=== PATIENT | male | born 1960 | race Caucasian/White ===

== ENCOUNTER → 2022-07-25 12:12 | Outpatient (CLI) | payer BC, SELFPAY ==
--- NOTE | 2022-07-25 12:16 | US_ITS ---
FINAL REPORT TECHNIQUE: Sonographic images of the right upper quadrant were obtained. CLINICAL HISTORY: RUQ ABDOMINAL PAIN FINDINGS: The liver is fatty infiltrated. There is no focal hepatic lesion or intrahepatic biliary dilatation. The gallbladder is distended with gallstones present. Gallbladder wall is mildly thickened. There appears to be a small amount of pericholecystic fluid. Common duct measures 4 mm which is normal. The pancreas is obscured. The right kidney measures 13.7 cm in jjcs-ch-shyl length. There is no hydronephrosis, mass, or stone. There is no right upper quadrant ascites. IMPRESSION: Distended gallbladder with gallstones, mild gallbladder wall thickening and pericholecystic fluid. Cholecystitis not excluded. Fatty infiltration of the liver. Reviewed, Interpreted and Dictated by Ginger Soni MD Transcribed by Jamila De Leon Authenticated and [facility]
== END ==
PROVIDERS: PCP Physician Assistant; Visit Provider Physician Assistant
DX: R10.11 Right upper quadrant pain (principal)
CPT/HCPCS: 76705

== ENCOUNTER 2022-07-26 10:40 | Inpatient (IN) | payer BC, SELFPAY ==
--- NOTE | 2022-07-26 10:54 | PC.NURSE ---
Pt arrived to the floor at this time
[2022-07-26 11:11] VITALS: BP 167/90; PULSE 63; RESP 16; TEMP 36.4; O2SAT 95; BMI 33.7
--- NOTE | 2022-07-26 12:26 | HMH.PHAINT1 ---
Pharmacy Intervention Comments: MEDICATION RECONCILIATION COMPLETED ON PATIENT USING EXTERNAL FILL HISTORY FROM PHARMACY. -DAYNA PAYNE, SELMAD
[2022-07-26 12:37] LABS: Coronavirus 19, PCR Not Detected (NotDetected); Influenza A, PCR Not Detected (NotDetected); Influenza B, PCR Not Detected (NotDetected)
--- NOTE | 2022-07-26 13:02 | EXP.HP ---
History of Present Illness *Admission Date: 07/26/22 *Reason for visit:: Gallbladder issues *History of present illness: Mr. 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 He described the pain as starting in his back several days prior to the office visit and then moved into his abdominal area the following day. He did have some pain in his right upper quadrant that lasted about 3 hours. He did not get any relief for several hours. With presentation to the office the pain was dull rating it 1-2 on the pain scale. He felt his muscles were sore. The pain was mostly in the upper abdomen at this time. He also had some nausea but denied vomiting and diarrhea and fever. Laboratory data completed at this time revealed a white count of 12,000. He was started on Ceftin for 10 days and metronidazole 3 times daily for 10 days. He was also given hyoscyamine for as needed use. Amylase was normal and liver function studies were not elevated. He was scheduled for right upper quadrant ultrasound at this time. He did have the ultrasound of the abdomen on 07/25/2022 which revealed a distended gallbladder with gallstones, mild gallbladder wall thickening and pericholecystic fluid. Also noted was fatty infiltration of the liver. He continued to have some intermittent abdominal discomfort. He was eating and drinking without vomiting. He was admitted to [facility] with the surgical consult. At the time of this exam patient is comfortable and denies nausea vomiting and abdominal pain. He is n.p.o. Surgery has been consulted. [facility] Disclaimer: The information contained in this section may have been updated after the patient was seen, as this information can be updated by other users. Medical History (Updated 07/26/22 @ 13:25 by Roberta Dugan APRN) DVT (deep venous thrombosis) GERD (gastroesophageal reflux disease) Hereditary spherocytosis Pulmonary embolism Pulmonary hypertension Right acoustic neuroma Sleep apnea Surgical History (Updated 07/26/22 @ 13:17 by Roberta Dugan APRN) History of splenectomy History of tonsillectomy S/P excision of acoustic neuroma Social History Smoking Status: Never smoker alcohol intake: never current occupational status: employed Travel in the last 8 weeks: None Review of Systems Constitutional Constitutional: Denies fever(s), Denies frequent falls and Reports headache(s) (Longstanding history of headaches) Eyes Eyes: Denies change in vision ENT Ears, Nose, Mouth, and Throat: Denies dizziness, Denies otalgia, Reports headache(s) (Longstanding history of headaches), Reports hearing loss and Denies sore throat *Cardiovascular Cardiovascular: Denies chest pain, Denies dyspnea and Reports leg edema *Respiratory Respiratory: Denies chest congestion, Denies cough and Denies dyspnea *Gastrointestinal Gastrointestinal: Reports abdominal pain, Denies belching, Denies diarrhea, Reports dyspepsia, Reports nausea and Denies vomiting *Genitourinary Genitourinary: Denies difficulty urinating *Musculoskeletal Musculoskeletal: Denies abnormal gait *Neurologic Neurologic: Denies abnormal gait, Denies dizziness, Denies localized weakness, Denies frequent falls, Reports headache(s) (Longstanding history of headaches) and Denies seizure-like activity Meds Home Medications and Allergies Home Medications Medication Instructions Recorded Confirmed Type ambrisentan 10 mg tablet (Letairis) 10 mg PO DAILY Pulmonary 07/26/22 07/26/22 History Hypertension benazepril 10 mg tablet 10 mg PO DAILY hypertension 07/26/22 07/26/22 History cefuroxime
[2022-07-26 13:12] LABS: INR 1.76 (0.9-1.1); Prothrombin Time 18.4 seconds (10.1-12.5)
--- NOTE | 2022-07-26 13:13 | P.PN_ITS ---
Subjective *Date: 07/26/22 *Time: 13:23 Interval history: 61 year old male with a 10 day history of right sided back pain that radiates to the right upper quadrants. He was seen in the office at [facility] on 07/22/22 and started on antibiotics, RUQ U/S was done yesterday and shows gallbladder changes consistent with acute cholecystitis. He was directly admitted today for surgical evaluation. Pt is on Coumadin Medical Exam Vital signs and Labs for Last 24 Hours: Vital Signs Temp Pulse Resp BP Pulse Ox 07/26/22 11:11 97.6 F 63 16 167/90 H 95 Intake and Output 07/25/22 07/26/22 07/26/22 23:59 07:59 15:59 Output Total 0 / 0 Balance 0 / 0 Output: Output, Urine Amount 0 / 0 Other: Number of Unmeasured Voids 1 Weight 249 lb 2 oz Patient Weight 07/26/22 23:59 Weight 249 lb 2 oz I & O for Labs for Last 24 Hours: Intake & Output 07/23/22 07/24/22 07/25/22 07/26/22 23:59 23:59 23:59 23:59 Output Total 0 / 0 Balance 0 / 0 Weight 249 lb 2 oz Constitutional: Present no acute distress Respiratory: Present normal respiratory effort Cardiac: Present Reg Rate and Rhythm GI: Present tenderness (RUQ), normal bowel sounds and tenderness at McBurney's Point; Absent guarding or rebound Extremities: Present normal inspection and full ROM Skin: Present intact; Absent erythema Neuro: Present Grossly Intact and moves all extremities Assessment and Plan *Assessment and plan (1) Cholecystitis: Status: Acute Category: Medical Code(s): K81.9 - Cholecystitis, unspecified Plan Patient admitted due to acute cholecystitis, labs pending, will consult surgery.
--- NOTE | 2022-07-26 13:24 | EXP.SURG.CON ---
History of Present Illness *Admission Date: 07/26/22 *Reason for visit:: Acute cholecystitis *History of present illness: Mr. 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 He described the pain as starting in his back about 6 days prior to the office visit and then moved into his abdominal area the following day. Pain is mostly in the epigastrium and right upper quadrant. He was managed as an outpatient when he was seen in the office in [facility] several days ago and started on oral antibiotics. He was scheduled for right upper quadrant ultrasound which he had done today which revealed findings of distended gallbladder with gallstones with mild gallbladder wall thickening and pericholecystic fluid. Cholecystitis not excluded. Fatty infiltration of the liver. He was admitted for inpatient management and surgical consultation this afternoon. [facility] Disclaimer: The information contained in this section may have been updated after the patient was seen, as this information can be updated by other users. Medical History (Updated 07/26/22 @ 13:25 by Roberta Dugan APRN) DVT (deep venous thrombosis) GERD (gastroesophageal reflux disease) Hereditary spherocytosis Pulmonary embolism Pulmonary hypertension Right acoustic neuroma Sleep apnea Surgical History (Updated 07/26/22 @ 13:17 by Roberta Dugan APRN) History of splenectomy History of tonsillectomy S/P excision of acoustic neuroma Social History Smoking Status: Never smoker alcohol intake: never current occupational status: employed Travel in the last 8 weeks: None Meds Home Medications and Allergies Home Medications Medication Instructions Recorded Confirmed Type ambrisentan 10 mg tablet (Letairis) 10 mg PO DAILY Pulmonary 07/26/22 07/26/22 History Hypertension benazepril 10 mg tablet 10 mg PO DAILY hypertension 07/26/22 07/26/22 History cefuroxime axetil 500 mg tablet 500 mg PO BID Infection 07/26/22 07/26/22 History cholecalciferol (vitamin D3) 25 1,000 unit PO DAILY Supplement 07/26/22 07/26/22 History mcg (1,000 unit) capsule (Vitamin D3) fenofibrate 160 mg tablet 160 mg PO DAILY TRIGLYCERIDES 07/26/22 07/26/22 History hydrochlorothiazide 25 mg tablet 25 mg PO DAILY Fluid 07/26/22 07/26/22 History hyoscyamine sulfate 0.125 mg 0.125 mg sublingual Q4HP PRN 07/26/22 07/26/22 History sublingual tablet STOMACH CRAMPS metoprolol succinate 100 mg 100 mg PO DAILY hypertension 07/26/22 07/26/22 History tablet,extended release 24 hr metronidazole 500 mg tablet 500 mg PO TID Infection 07/26/22 07/26/22 History efulxjbertqo-vvqpeuvs-zulteu 1 tab PO DAILY Supplement 07/26/22 07/26/22 History tablet (Multivitamin 50 Plus tablet) omeprazole 20 mg capsule,delayed 20 mg PO DAILY GERD 07/26/22 07/26/22 History release tamsulosin 0.4 mg capsule 0.4 mg PO DAILY PROSTATE 07/26/22 07/26/22 History warfarin 5 mg tablet 2.5 mg PO MOWEFR HX OF DVT/PE 07/26/22 07/26/22 History warfarin 5 mg tablet 5 mg PO SUTUTHSA HX OF DVT/PE 07/26/22 07/26/22 History New Prescriptions to Start Prescriptions: Allergies Allergy/AdvReac Type Severity Reaction Status Date / Time Penicillins Allergy Verified 07/26/22 13:00 Exam (Inpt) Vital signs and Labs for Last 24 Hours: Temp Pulse Resp BP Pulse Ox 97.6 F 63 16 167/90 H 95 07/26/22 11:11 07/26/22 11:11 07/26/22 11:11 07/26/22 11:11 07/26/22 11:11 Laboratory Results - last 24 hr 07/26/22 12:48: PT 18.4 H, INR 1.76 H I & O for Labs for Last 24 Hours: Intake & Output 07/24/22 07/25/22 07/26/22 0
--- NOTE | 2022-07-26 13:56 | ECG_ITS ---
APPROVED REPORT Exam: Resting ECG HR:57 bpm ECG Measurements Heart Rate 57 AXES MN 222 P 26 QRSd 82 QRS 39 QT 443 T 47 QTc 436 Conclusion SINUS BRADYCARDIA WITH FIRST DEGREE AV BLOCK ABNORMAL ECG UNCONFIRMED REPORT Electronically signed by : Vasu Vance MD 07/26/2022 21:23:14
[2022-07-26 15:02] LABS: MANUAL DIFFERENTIAL MANUAL DIFFERENTIAL (MANUAL DIFF)
[2022-07-26 15:05] LABS: Basophils # 0.1 K/mm3 (0-0.2); Basophils % 1.1 % (0.1-2.0); Chloride 102 mmol/L (98-107); Eosinophils # 0.5 K/mm3 (0.0-0.4); Eosinophils % 4.6 % (0.1-12.0); Hematocrit 44.9 % (42.0-52.0); Hemoglobin 15.7 g/dL (14.1-18.0); Lymphocytes # 3.9 K/mm3 (0.7-4.5); Lymphocytes % 33.5 % (10-50); Mean Corpuscular HGB Conc 35.1 g/dL (31.8-35.4); Mean Corpuscular Hemoglobin 32.9 pg (27.0-31.2); Mean Corpuscular Volume 93.6 fl (80-94); Mean Platelet Volume 9.3 fl (7.4-10.4); Monocytes # 0.8 K/mm3 (0.1-1.0); Monocytes % 6.8 % (1.7-9.3); Neutrophils # 6.3 K/mm3 (1.8-7.8); Platelet Count 634 K/mm3 (142-424); Red Blood Count 4.79 M/mm3 (4.60-6.20); Red Cell Distribution Width 13.8 % (11.5-17.5); Sodium 141 mmol/L (136-145); White Blood Count 11.7 K/mm3 (4.8-10.8)
[2022-07-26 15:06] LABS: Potassium 4.4 mmoL/L (3.5-5.1)
[2022-07-26 15:08] LABS: Alanine Aminotransferase 25 U/L (12-78); Anion Gap 11.4 mEq/L (5-15); Aspartate Amino Transferase 30 U/L (17-59); Blood Urea Nitrogen 18 mg/dl (9-20); Carbon Dioxide 32 mmol/L (22.0-30.0); Creatinine Clearance Estimated 124 mL/min (50-200); Estimated Glomerular Filt Rate 86 ml/min (>60); GFR (African American) 104 ML/MIN (>60)
[2022-07-26 15:09] LABS: Albumin Level 4.2 g/dl (3.5-5.0); Albumin/Globulin Ratio 1.2 (1.1-1.8); Alkaline Phosphatase 76 U/L (38-126); Bilirubin,Total 0.9 mg/dl (0.2-1.3); Calcium 9.1 mg/dl (8.4-10.2); Globulin 3.6 g/dL (1.3-3.2); Glucose 103 mg/dl (74-100); Total Protein,Serum 7.8 g/dl (6.3-8.2)
[2022-07-26 15:27] VITALS: BP 148/93; PULSE 60; RESP 16; TEMP 36.3; O2SAT 94
[2022-07-26 17:46] LABS: Eosinophils % 7 % (0-3); Lymphocytes % 40 % (10-50); Monocytes % 7 % (2-9); Neutrophils % 46 % (42-76); Total Cells Counted 100
[2022-07-26 17:47] LABS: Platelet Estimate Moderate Increase; RBC Morphology Normal
[2022-07-26 20:00] VITALS: BP 142/77; PULSE 63; RESP 22; TEMP 36.3; O2SAT 95
--- NOTE | 2022-07-26 20:49 | PC.NURSE ---
dr meyer called for pt complaints of headache, telephone order recieved fro tylenol 650mg po q4hrs as needed repeated and verified, consent obtained for laparoscopic cholecystectomy as ordered, pt verabalized understanding of all.
[2022-07-27] VITALS (36 sets, daily range): BP systolic 101–173; BP diastolic 50–102; PULSE 62–93; RESP 10–28; TEMP 36.2–43; O2SAT 90–98; BMI 34.0
--- NOTE | 2022-07-27 04:34 | PC.NURSE ---
no acute distress, vss, pt is alert and oriented x4, abd distended and tender, active bowel sounds noted, pt with bm x2 this shift, pt with home cpap at bedside and in use while sleeping, pt voiding without difficulty, ble edema non pitting 2+ noted, skin pwd.
[2022-07-27 06:59] LABS: Prothrombin Time 16.8 seconds (10.1-12.5)
--- NOTE | 2022-07-27 07:15 | P.PN_ITS ---
Subjective Narrative: Patient states that his night was rough due to pain from his gallbladder. Exam Data for Last 24 hours Vital signs and Labs for Last 24 Hours: Temp Pulse Resp BP Pulse Ox 97.4 F L 66 22 134/65 96 07/27/22 04:00 07/27/22 04:00 07/27/22 04:00 07/27/22 04:00 07/27/22 04:00 Laboratory Results - last 24 hr 07/26/22 12:10: SARS-CoV-2 (PCR) Not detected, Influenza A Untype (PCR) Not detected, Influenza Type B (PCR) Not detected 07/26/22 12:48: PT 18.4 H, INR 1.76 H 07/26/22 12:48: WBC 11.7 H, RBC 4.79, Hgb 15.7, Hct 44.9, MCV 93.6, MCH 32.9 H, MCHC 35.1, RDW 13.8, Plt Count 634 H, MPV 9.3, Neut % (Auto) 54.0, Lymph % (Auto) 33.5, [place] % (Auto) 6.8, Eos % (Auto) 4.6, Baso % (Auto) 1.1, Neut # (Auto) 6.3, Lymph # (Auto) 3.9, [place] # (Auto) 0.8, Eos # (Auto) 0.5 H, Baso # (Auto) 0.1, Total Counted 100, Neutrophils % (Manual) 46, Lymphocytes % (Manual) 40, Monocytes % (Manual) 7, Eosinophils % (Manual) 7 H, Platelet Estimate Modera te increase, RBC Morphology Normal 07/26/22 12:48: Sodium 141, Potassium 4.4, Chloride 102, Carbon Dioxide 32 H, Anion Gap 11.4, BUN 18, Creatinine 0.90, Estimated Creat Clear 124, Estimated GFR 86, Est GFR ( Amer) 104, Glucose 103 H, Calcium 9.1, Total Bilirubin 0.9, AST 30, ALT 25, Alkaline Phosphatase 76, Total Protein 7.8, Albumin 4.2, Globulin 3.6 H, Albumin/Globulin Ratio 1.2 07/27/22 06:07: PT 16.8 H, INR 1.60 H I & O for Last 24 hours: Intake & Output 07/24/22 07/25/22 07/26/22 01/25/23 11:59 11:59 11:59 11:59 Intake Total 760 / 760 Output Total 0 / 0 0 / 0 Balance 0 / 0 760 / 760 Weight 249 lb 2 oz 251 lb *Routine Abdominal Exam Abdominal: Present soft and tenderness Progress Note: A&P Assessment and plan (1) Cholecystitis: Status: Acute Assessment and plan: His INR is 1.6. Plan for laparoscopic possibly open cholecystectomy today. We will see about transfusing FFP during the procedure.
--- NOTE | 2022-07-27 07:51 | EXP.PN ---
Subjective *Date: 07/27/22 *Time: 08:34 Interval history: Patient is ready for surgery. He has been seen by Dr. Fernando and the plan is for surgery at 830 this morning. Patient states he slept about 4 hours last night which is his usual. He did have some right upper quadrant discomfort during the night. He had clear liquids and retained yesterday and he is hungry. He always has a headache. He has been seen by Dr. Fernando this morning with plan for laparoscopic possibly open cholecystectomy today. Patient will receive fresh frozen plasma during the procedure. INR this morning was 1.6. Exam Data for Last 24 hours Vital signs and Labs for Last 24 Hours: Temp Pulse Resp BP Pulse Ox 97.4 F L 66 22 134/65 96 07/27/22 04:00 07/27/22 04:00 07/27/22 04:00 07/27/22 04:00 07/27/22 04:00 Laboratory Results - last 24 hr 07/26/22 12:10: SARS-CoV-2 (PCR) Not detected, Influenza A Untype (PCR) Not detected, Influenza Type B (PCR) Not detected 07/26/22 12:48: PT 18.4 H, INR 1.76 H 07/26/22 12:48: WBC 11.7 H, RBC 4.79, Hgb 15.7, Hct 44.9, MCV 93.6, MCH 32.9 H, MCHC 35.1, RDW 13.8, Plt Count 634 H, MPV 9.3, Neut % (Auto) 54.0, Lymph % (Auto) 33.5, [place] % (Auto) 6.8, Eos % (Auto) 4.6, Baso % (Auto) 1.1, Neut # (Auto) 6.3, Lymph # (Auto) 3.9, [place] # (Auto) 0.8, Eos # (Auto) 0.5 H, Baso # (Auto) 0.1, Total Counted 100, Neutrophils % (Manual) 46, Lymphocytes % (Manual) 40, Monocytes % (Manual) 7, Eosinophils % (Manual) 7 H, Platelet Estimate Moderate increase, RBC Morphology Normal 07/26/22 12:48: Sodium 141, Potassium 4.4, Chloride 102, Carbon Dioxide 32 H, Anion Gap 11.4, BUN 18, Creatinine 0.90, Estimated Creat Clear 124, Estimated GFR 86, Est GFR ( Amer) 104, Glucose 103 H, Calcium 9.1, Total Bilirubin 0.9, AST 30, ALT 25, Alkaline Phosphatase 76, Total Protein 7.8, Albumin 4.2, Globulin 3.6 H, Albumin/Globulin Ratio 1.2 07/27/22 06:07: PT 16.8 H, INR 1.60 H I & O for Last 24 hours: Intake & Output 07/24/22 07/25/22 07/26/22 07/27/22 11:59 11:59 11:59 11:59 Intake Total 760 / 760 Output Total 0 / 0 0 / 0 Balance 0 / 0 760 / 760 Weight 249 lb 2 oz 251 lb Constitutional Constitutional: no acute distress Comments: Appears comfortable at this point. is at bedside. *Routine Respiratory Exam Respiratory: Present CTA bilaterally (Anteriorly and posteriorly) *Routine Cardiovascular Exam Cardiovascular: Present RRR *Routine Abdominal Exam Abdominal: Present soft, normoactive bowel sounds, tenderness (Right upper quadrant) and distended *Routine Extremities Exam Extremities: Absent edema or calf tenderness *Routine Neurological Exam Neurological: Present alert and oriented X3 Assessment and Plan *Assessment and plan (1) Cholecystitis: Status: Acute Category: Medical Code(s): K81.9 - Cholecystitis, unspecified (2) Pulmonary hypertension: Status: Acute Category: Medical Code(s): I27.20 - Pulmonary hypertension, unspecified (3) BPH (benign prostatic hyperplasia): Status: Acute Category: Medical Code(s): N40.0 - Benign prostatic hyperplasia without lower urinary tract symptoms (4) Recurrent acute deep vein thrombosis (DVT) of both lower extremities: Status: Acute Category: Medical Code(s): I82.403 - Acute embolism and thrombosis of unspecified deep veins of lower extremity, bilateral Plan For cholecystectomy this morning at 8:[address] Abbott entry - Saw patient, agree with above note. FFP during surgery, start treatment dose Lovenox once hemostasis is obtained after procedure.
--- NOTE | 2022-07-27 08:39 | EXP.ANES.CKL ---
[facility] Disclaimer: The information contained in this section may have been updated after the patient was seen, as this information can be updated by other users. Medical History DVT (deep venous thrombosis) GERD (gastroesophageal reflux disease) Hereditary spherocytosis Pulmonary embolism Pulmonary hypertension Right acoustic neuroma Sleep apnea Surgical History History of splenectomy History of tonsillectomy S/P excision of acoustic neuroma Social History Smoking Status: Never smoker alcohol intake: never substance use type: denies use current occupational status: employed Travel in the last 8 weeks: None [facility] Anesthesia Checklist Patient Identification Patient Identification: Arm Band and Verbal (Name & ) Structural Data Admitted From: Inpatient Planned Operative Procedure/s: Lap. cholecystectomy Consent for Planned Operative Procedure(s) Verified: Yes NPO Status Verified Time NPO: 00:00 Chart Verification Results Verified: CBC and BMP Airway Assessment C-Spine Mobility Assessed: Yes TMJ Mobility Assessed: Yes Dentition: Good Dentition Neurological Assessment Level of Consciousness: Awake Hx Seizures: No Numbness or tingling in extremities: No Anesthesia Plan Anesthesia Risk discussed: Yes Anesthesia Plan: Verified ASA Class: III Anesthesia Type: General
--- NOTE | 2022-07-27 09:11 | SUR.PREOP ---
FFP picked up and given to Efren Ray CRNA for administration.
--- NOTE | 2022-07-27 09:52 | SUR.OPER ---
0900- all FFP verified with the product/pt identifiers at bedside with geraldine lea upon rolling into the OR for procedure.
--- NOTE | 2022-07-27 11:58 | EXP.OP.NOTE ---
Date of procedure: 07/27/22 Pre-op Diagnosis:: Acute calculus cholecystitis Post-op Diagnosis:: Same Procedure performed:: Laparoscopic cholecystectomy Surgeon:: Ector Fernando MD M[employer]AGE LOAN FUNDER:: Other Anesthesia: ANTONETTE Estimated blood loss (mL): 35 Clinical Note:: Mr. 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 He described the pain as starting in his back about 6 days prior to the office visit and then moved into his abdominal area the following day.? Pain is mostly in the epigastrium and right upper quadrant.? He was managed as an outpatient when he was seen in the office in [facility] several days ago and started on oral antibiotics.? He was scheduled for right upper quadrant ultrasound which he had done on 07/22/2022 which revealed findings of distended gallbladder with gallstones with mild gallbladder wall thickening and pericholecystic fluid.? Cholecystitis not excluded.? Fatty infiltration of the liver. ? He was admitted for inpatient management and surgical consultation. Patient was seen and examined. He had findings consistent with acute cholecystitis. Arrangements were made for cholecystectomy the following day. Given his persistent slight elevation of INR at 1.6 he was administered FFP on-call to the operating room. Operative findings:: He had some mild fatty infiltration of liver. He had a significantly distended gallbladder with profound thickening. There was significant severe acute on chronic inflammation with pericholecystic fluid. He had AN 8 cm stone impacted in the neck of the gallbladder. There was a large amount of inflammation around the marcos hepatis. Gallbladder was somewhat intrahepatic. Operative note:: Patient was taken the operating room. He was positioned in supine position. General anesthesia was induced via endotracheal tube. Abdomen was prepped and draped in the standard surgical fashion. Subumbilical skin incision was made while performing abdominal wall a Veress needle was inserted. CO2 pneumoperitoneum was achieved to 15 mmHg. Initial 5 mm optical trocar was inserted into the abdomen. Laparoscopic surveillance was carried out. There were no intra-abdominal adhesions surprisingly from prior splenectomy. He was positioned in reverse Trendelenburg left side down. A couple 5 mm trochars were inserted in the right upper abdomen. 10 mm trocar was inserted in the epigastrium. Gallbladder was identified. It was significantly thickened and distended and tense. There was a very large stone impacted in the neck of the gallbladder. The gallbladder was aspirated using the laparoscopic needle aspirator. Gallbladder wall was markedly thickened. There was profound acute on chronic inflammation. Gallbladder was retracted anteriorly and superiorly over the dome of the liver. There was some portion of the gallbladder which was virtually intrahepatic. The infundibulum/Hernandez's pouch was retracted anterolaterally. Very prolonged dissection was carried out ultimately identifying the cystic duct. Due to the inflammation appeared rather foreshortened. Additional prolonged dissection was carried out mobilizing some of the cystic duct. This allowed for multiple clip placement after it was isolated. It was then sharply divided. Cystic artery was carefully coagulated with SANTIAGO ultrasonic harmonic mingo and divided. Gallbladder was partially dissected free from the liver in a retrograde fashion using SANTIAGO ultrasonic harmonic mingo. Due to the profound inflammation and thickening of the gallbladder harmonic mingo were unsuccessful and additional dissection from the liver and laparoscopic electrocautery was used f
--- NOTE | 2022-07-27 12:00 | SUR.PHASEI ---
Abdomen noted to be distended and firm in areas. active BS noted in upper quads, hypoactive in lower.
--- NOTE | 2022-07-27 12:12 | P.PNANES_ITS ---
[facility] Anesthesia Record Part I Anesthesia Record I Intake, IV Amount: 1,200 Estimated blood loss (mL): 50 Urine output (mL): 0 Blood Products used (#): none Blood Pressure: 140/102 SaO2: 92 Pulse Rate: 69 Respiratory Rate: 28 Temperature: 97.1 F Patient is:: Drowsy and Stable Stable to PACU at:: 11:52 Comments:: Restless on awakening, requiring additional pain medication.
--- NOTE | 2022-07-27 12:20 | SUR.PHASEI ---
Pulse ox replaced to ear and sats improved to 98% on 10L per non-rebreather. replaced NC 5L and sats staying good-95 %. Abdomen still distended, BS unchanged
--- NOTE | 2022-07-27 12:20 | SUR.PHASEI ---
Pt has been restless since arrival to PACU, attempting to get out of bed at one point. says is hurting, lethargic. Have medicated pt with Dilaudid 0.5mg dilaudid every 5 minutes per Pacu order. VSS. Respirations slow to apnea when pt falls asleep. Sats maintaining 91-95% on 10L NC. Juliet Alvares BDC MANAGER has been at bedside.
--- NOTE | 2022-07-27 12:32 | PC.NURSE ---
pt more awake and doing a little better, says pain has decreased to 6. Pt wanted to sit at bedside to pee. Pt began belching as soon as sat up. Sats 94% on 4 L.
--- NOTE | 2022-07-27 13:24 | SUR.PHASEI ---
Pt doing much better. Sitting at side of bed. Has urinated in urinal x2 for total of 250cc. Dressing C/D/I. Pain 12/10. VSS. Has munched on some ice chips without any problems. Pt pleasant and talkative. Eager to get to feeling better and go home. Report called to [facility] on 2nd floor.
--- NOTE | 2022-07-27 14:03 | EXP.ANES.II ---
[facility] Anesthesia Record Part II Anesthesia Record Part II Discharge Time: 13:22 Destination: Surgical Day Care (OP Surgery) PACU nurse assessment reviewed?: Yes Patient Condition:: Good Anesthesia Complications:: None Swallowing reflex intact?: Yes Cyanosis?: No Blood Pressure: 131/79 Pulse Rate: 93 Temperature: 97.1 F Mental Status: Alert & Oriented Pain level:: 6 Nausea and/or vomitting:: None Intake, IV Amount: 0
--- NOTE | 2022-07-27 18:25 | PC.NURSE ---
Patient ambulated after dinner, able to eat full liquid and bland diet with no problems. Morphine given for abdominal pain after ambulation. Bowel sounds active in all 4 quadrants. VS stable. Patient placed on simple mask while sleeping as pt has sleep apnea and oxygen decreased to mid 80's. While awake, pt on room air. Lap sites clean dry and intact, abdomen distended. Patient able to belch frequently.
--- NOTE | 2022-07-27 18:38 | PC.NURSE ---
Milrinone drip currently infusing. VS stable and pt remained on room air. No complaints of pain. A paced on monitor and occasionally av paced.
[2022-07-28] VITALS (7 sets, daily range): BP systolic 112–154; BP diastolic 65–84; PULSE 67–78; RESP 18–24; TEMP 36.6–37.2; O2SAT 89–92; BMI 34.4; BMI 34.3
--- NOTE | 2022-07-28 06:16 | PC.NURSE ---
PATIENT HAS NOT PASSED GAS. ABDOMEN DISTENDED AND FIRM, + BOWEL SOUNDS X 4. REQUIRING MORPHINE 2 MG IVP Q 2-3 HRS FOR PAIN CONTROL. ALSO HAS HAD 2 ROUNDS OF TYLENOL 650 FOR PAIN. AMBULATES WELL. HAS WALKED THE HALLS 4 TIMES TONIGHT. DRSGS TO LAP CHELSEY INCISIONS X 4 ARE C/D/I. HAS USED CPAP SPORADICALLY . 91% 02 SAT ON ROOM AIR.
--- NOTE | 2022-07-28 07:21 | EXP.SURG.PN ---
Subjective Narrative: Patient states that he does have some significant right upper quadrant soreness described as sharp pain. He has been ambulating. No nausea. Has been belching. No flatus. Exam Data for Last 24 hours Vital signs and Labs for Last 24 Hours: Temp Pulse Resp BP Pulse Ox 98.1 F 76 24 136/74 91 L 07/28/22 04:00 07/28/22 04:00 07/28/22 04:00 07/28/22 04:00 07/28/22 04:00 Laboratory Results - last 24 hr 07/27/22 06:07: Blood Type Confirm B Positive 07/27/22 07:35: Blood Type B Positive I & O for Last 24 hours: Intake & Output 07/25/22 07/26/22 07/27/22 07/28/22 11:59 11:59 11:59 11:59 Intake Total 1086 / 1086 1860 / 1860 Output Total 0 / 0 0 / 0 1350 / 1350 Balance 0 / 0 1086 / 1086 510 / 510 Weight 249 lb 2 oz 251 lb 254 lb 1.6 oz *Routine Abdominal Exam Abdominal: Present tenderness and distended Progress Note: A&P Assessment and plan (1) Cholecystitis: Status: Acute Assessment and plan: He has findings of possible ileus with abdominal distention and pain. He has been belching. Laboratory studies pending at this time. (2) Pulmonary hypertension: Status: Acute (3) BPH (benign prostatic hyperplasia): Status: Acute (4) Recurrent acute deep vein thrombosis (DVT) of both lower extremities: Status: Acute
[2022-07-28 07:39] LABS: Basophils # 0.1 K/mm3 (0-0.2); Basophils % 0.3 % (0.1-2.0); Eosinophils # 0.2 K/mm3 (0.0-0.4); Eosinophils % 0.6 % (0.1-12.0); Hemoglobin 14.7 g/dL (14.1-18.0); Lymphocytes # 2.2 K/mm3 (0.7-4.5); Lymphocytes % 9.6 % (10-50); Mean Corpuscular HGB Conc 33.3 g/dL (31.8-35.4); Mean Corpuscular Hemoglobin 31.3 pg (27.0-31.2); Mean Corpuscular Volume 94.1 fl (80-94); Mean Platelet Volume 8.6 fl (7.4-10.4); Monocytes # 1.5 K/mm3 (0.1-1.0); Monocytes % 6.3 % (1.7-9.3); Neutrophils # 19.3 K/mm3 (1.8-7.8); Platelet Count 578 K/mm3 (142-424); Red Blood Count 4.68 M/mm3 (4.60-6.20); Red Cell Distribution Width 13.6 % (11.5-17.5); White Blood Count 23.2 K/mm3 (4.8-10.8)
[2022-07-28 07:42] LABS: MANUAL DIFFERENTIAL MANUAL DIFFERENTIAL (MANUAL DIFF)
[2022-07-28 07:53] LABS: Alanine Aminotransferase 44 U/L (12-78); Albumin Level 3.8 g/dl (3.5-5.0); Albumin/Globulin Ratio 1.1 (1.1-1.8); Alkaline Phosphatase 105 U/L (38-126); Anion Gap 11.2 mEq/L (5-15); Aspartate Amino Transferase 93 U/L (17-59); Bilirubin,Total 1.3 mg/dl (0.2-1.3); Blood Urea Nitrogen 20 mg/dl (9-20); Calcium 8.6 mg/dl (8.4-10.2); Carbon Dioxide 25 mmol/L (22.0-30.0); Chloride 102 mmol/L (98-107); Creatinine Clearance Estimated 126 mL/min (50-200); Estimated Glomerular Filt Rate 76 ml/min (>60); GFR (African American) 92 ML/MIN (>60); Globulin 3.5 g/dL (1.3-3.2); Glucose 139 mg/dl (74-100); Potassium 4.2 mmoL/L (3.5-5.1); Sodium 134 mmol/L (136-145); Total Protein,Serum 7.3 g/dl (6.3-8.2)
[2022-07-28 07:58] LABS: Prothrombin Time 15.8 seconds (10.1-12.5)
--- NOTE | 2022-07-28 08:07 | EXP.ACUTE.PN ---
Subjective *Date: 07/28/22 *Time: 08:43 Interval history: Patient is still in pain and requiring pain medication. He is eating very minimal amounts of food. He rested off and on throught the night. Medical Exam Vital signs and Labs for Last 24 Hours: Vital Signs Temp Pulse Pulse Resp BP BP Pulse Ox 07/28/22 07:41 97.8 F 70 18 142/82 H 91 L 07/28/22 04:00 98.1 F 76 24 136/74 91 L 07/27/22 23:52 98.7 F 70 22 138/71 91 L 07/27/22 20:00 97.7 F 89 22 130/74 91 L 07/27/22 19:00 97.6 F 86 22 170/83 H 91 L 07/27/22 19:48 91 L 07/27/22 18:00 99.2 F 91 H 22 163/81 H 91 L 07/27/22 17:00 91 H 22 153/50 H 91 L 07/27/22 16:00 86 20 168/102 H 91 L 07/27/22 15:30 79 21 170/81 H 91 L 07/27/22 15:00 82 20 171/90 H 91 L 07/27/22 14:30 84 22 157/96 H 95 07/27/22 14:15 84 22 153/92 H 94 L 07/27/22 14:00 97.3 F L 79 20 147/90 H 90 L 07/27/22 13:45 97.5 F L 78 22 162/87 H 90 L 07/27/22 13:50 97.9 F 77 20 150/94 H 92 L 07/27/22 13:22 78 20 131/79 93 L 07/27/22 13:12 77 20 151/75 H 95 07/27/22 13:02 85 20 164/100 H 91 L 07/27/22 12:52 83 20 160/98 H 93 L 07/27/22 12:42 87 20 159/99 H 93 L 07/27/22 12:32 78 20 151/97 H 95 07/27/22 12:22 75 20 160/96 H 98 07/27/22 12:12 69 20 161/93 H 96 07/27/22 12:02 72 20 151/89 H 92 L 07/27/22 11:52 97.1 F L 83 20 112/69 90 L 07/27/22 10:20 98.4 F 62 10 L 101/59 L 91 L 07/27/22 09:20 98.3 F 62 12 133/77 93 L 07/27/22 09:15 98.3 F 63 18 159/93 H 93 L 07/27/22 09:10 98.2 F 64 18 162/93 H 93 L 07/27/22 09:05 98.3 F 70 20 173/100 H 97 07/27/22 09:00 98.2 F 69 20 161/99 H 95 07/27/22 08:59 98.2 F 66 20 162/96 H 95 07/27/22 14:06 97.1 F L 93 H 131/79 07/27/22 12:15 97.1 F L 69 28 H 140/102 H Intake and Output 07/27/22 07/28/22 07/28/22 19:59 03:59 11:59 Intake Total 1760 / 2340 580 / 2340 Output Total 500 / 1350 850 / 1350 0 / 1350 Balance 1260 / 990 -850 / 990 580 / 990 Intake: Intake, Oral Amount 360 / 840 480 / 840 Intake, Total IV Amount 1400 / 1500 100 / 1500 Levofloxacin/D5w 500 mg In 100 100 / 100 ml @ 100 mls/hr IV 1100 [facility] Rx# :[id number] Metronidaz/Sod Chl 500 mg In 100 / 200 100 / 200 100 ml @ 100 mls/hr IV Q8H [facility] Rx#:[id number] Output: Output, Urine Amount 500 / 1350 850 / 1350 0 / 1350 Other: Number of Unmeasured Voids 2 2 1 Weight 254 lb 1.6 oz Patient Weight 07/28/22 11:59 Weight 254 lb 1.6 oz Laboratory Results - last 24 hr 07/27/22 07:35: Blood Type B Positive 07/28/22 06:30: WBC 23.2 H* D, RBC 4.68, Hgb 14.7, Hct 44.0, MCV 94.1 H, MCH 31.3 H, MCHC 33.3, RDW 13.6, Plt Count 578 H, MPV 8.6, Neut % (Auto) 83.0 H, Lymph % (Auto) 9.6 L, [place] % (Auto) 6.3, Eos % (Auto) 0.6, Baso % (Auto) 0.3, Neut # (Auto) 19.3 H, Lymph # (Auto) 2.2, [place] # (Auto) 1.5 H, Eos # (Auto) 0.2, Baso # (Auto) 0.1 07/28/22 06:30: Sodium 134 L, Potassium 4.2, Chloride 102, Carbon Dioxide 25, Anion Gap 11.2, BUN 20, Creatinine 1.00, Estimated Creat Clear 126, Estimated GFR 76, Est GFR ( Amer) 92, Glucose 139 H, Calcium 8.6, Total Bilirubin 1.3, AST 93 H D, ALT 44 D, Alkaline Phosphatase 105, Total Protein 7.3, Albumin 3.8, Globulin 3.5 H, Albumin/Globulin Ratio 1.1 I & O for Labs for Last 24 Hours: Intake & Output 07/25/22 07/26/22 07/27/22 07/28/22 11:59 11:59 11:59 11:59 Intake Total 1086 / 1086 2340 / 2340 Output Total 0 / 0 0 / 0 1350 / 1350 Balance 0 / 0 1086 / 1086 990 / 990 Weight 249 lb 2 oz 251 lb 254 lb 1.6 oz Constitutional: Present no acute distress Respiratory: Present normal respiratory effort Cardiac: Present Reg Rate and Rhythm GI: Present tenderness (around incision sites) and normal bowel sounds; Absent guarding or rebound Extremities: Present nor
[2022-07-28 08:34] LABS: Eosinophils % 1 % (0-3); Lymphocytes % 11 % (10-50); Monocytes % 7 % (2-9); Neutrophils % 81 % (42-76); Platelet Estimate Slight Increase; RBC Morphology Normal; Total Cells Counted 100
--- NOTE | 2022-07-28 14:29 | PC.NURSE ---
PT IS RESTING IN BED WITH FAMILY AT BEDSIDE. ALERT AND ORIENTED X4. TOLERATING LIQUIDS AND EATING SMALL AMOUNTS OF BLAND DIET. THIS MORNING PT WAS NOT GETTING PAIN RELIEF WITH MORPHINE. NOTIFIED . MORPHINE WAS CHANGED TO DILAUDID AND SCHEDULED TORADOL WAS ORDERED. PT HAS HAD ONE DOSE OF TORADOL AND HAS BEEN COMFORTABLE SINCE. ABDOMEN IS STILL DISTENDED WITH HYPOACTIVE BOWEL SOUNDS. PT HAS AMBULATED IN THE [place] SEVERAL TIMES THIS SHIFT. WILL CONTINUE TO MONITOR .
--- NOTE | 2022-07-28 20:28 | PC.NURSE ---
PATIENT'S 02 SAT 89% AT THIS TIME ON ROOM AIR. PLACED ON 02 AT 2LNC. DENIES SOA. WILL RECHECK 02 SAT IN 30 MINS.
--- NOTE | 2022-07-28 21:02 | PC.NURSE ---
02 SAT 92% ON 2LNC.
[2022-07-29] VITALS: BP 152/78; PULSE 100; RESP 18; TEMP 36.6; O2SAT 98
[2022-07-29 04:00] VITALS: BP 136/77; PULSE 83; RESP 18; TEMP 36.6; O2SAT 97; BMI 34.4
--- NOTE | 2022-07-29 05:32 | PC.NURSE ---
HAS PASSED 3 SMALL STOOLS THIS SHIFT. PASSING GAS. ACTIVE BOWEL SOUNDS X 4. AMBULATORY WITH OUT DIFFICULTY. HAS NOT REQUIRED NARCOTICS TONIGHT. TORADOL HAS CONTROLLED HIS PAIN,
[2022-07-29 06:09] LABS: Basophils # 0.1 K/mm3 (0-0.2); Basophils % 0.5 % (0.1-2.0); Eosinophils # 0.3 K/mm3 (0.0-0.4); Eosinophils % 1.3 % (0.1-12.0); Hematocrit 43.5 % (42.0-52.0); Hemoglobin 14.4 g/dL (14.1-18.0); Lymphocytes % 9.3 % (10-50); Mean Corpuscular Hemoglobin 30.9 pg (27.0-31.2); Mean Corpuscular Volume 93.7 fl (80-94); Mean Platelet Volume 8.2 fl (7.4-10.4); Monocytes # 1.2 K/mm3 (0.1-1.0); Monocytes % 5.7 % (1.7-9.3); Neutrophils # 17.9 K/mm3 (1.8-7.8); Neutrophils % 83.3 % (37.0-80.0); Platelet Count 550 K/mm3 (142-424); Red Blood Count 4.64 M/mm3 (4.60-6.20); Red Cell Distribution Width 13.7 % (11.5-17.5); White Blood Count 21.5 K/mm3 (4.8-10.8)
[2022-07-29 06:13] LABS: Anion Gap 11.8 mEq/L (5-15); Blood Urea Nitrogen 21 mg/dl (9-20); Calcium 8.7 mg/dl (8.4-10.2); Carbon Dioxide 26 mmol/L (22.0-30.0); Chloride 102 mmol/L (98-107); Creatinine Clearance Estimated 127 mL/min (50-200); Estimated Glomerular Filt Rate 76 ml/min (>60); GFR (African American) 92 ML/MIN (>60); Glucose 117 mg/dl (74-100); Potassium 3.8 mmoL/L (3.5-5.1); Sodium 136 mmol/L (136-145)
[2022-07-29 06:18] LABS: MANUAL DIFFERENTIAL MANUAL DIFFERENTIAL (MANUAL DIFF)
--- NOTE | 2022-07-29 07:08 | P.PN_ITS ---
Subjective Narrative: Patient states that he feels much better. Toradol helped his pain. He is passing gas. He still does feel a bit bloated. Exam Data for Last 24 hours Vital signs and Labs for Last 24 Hours: Temp Pulse Resp BP Pulse Ox 97.9 F 83 18 136/77 97 07/29/22 04:00 07/29/22 04:00 07/29/22 04:00 07/29/22 04:00 07/29/22 04:00 Laboratory Results - last 24 hr 07/28/22 06:30: PT 15.8 H, INR 1.50 H 07/28/22 06:30: WBC 23.2 H* D, RBC 4.68, Hgb 14.7, Hct 44.0, MCV 94.1 H, MCH 31.3 H, MCHC 33.3, RDW 13.6, Plt Count 578 H, MPV 8.6, Neut % (Auto) 83.0 H, Lym ph % (Auto) 9.6 L, [place] % (Auto) 6.3, Eos % (Auto) 0.6, Baso % (Auto) 0.3, Neut # (Auto) 19.3 H, Lymph # (Auto) 2.2, [place] # (Auto) 1.5 H, Eos # (Auto) 0.2, Baso # (Auto) 0.1, Total Counted 100, Neutrophils % (Manual) 81 H, Lymphocytes % (Manual) 11, Monocytes % (Manual) 7, Eosinophils % (Manual) 1, Platelet Estimate Slight increase, RBC Morphology Normal 07/28/22 06:30: Sodium 134 L, Potassium 4.2, Chloride 102, Carbon Dioxide 25, Anion Gap 11.2, BUN 20, Creatinine 1.00, Estimated Creat Clear 126, Estimated GFR 76, Est GFR ( Amer) 92, Glucose 139 H, Calcium 8.6, Total Bilirubin 1.3, AST 93 H D, ALT 44 D, Alkaline Phosphatase 105, Total Protein 7.3, Albumin 3.8, Globulin 3.5 H, Albumin/Globulin Ratio 1.1 07/29/22 05:37: WBC 21.5 H*, RBC 4.64, Hgb 14.4, Hct 43.5, MCV 93.7, MCH 30.9, MCHC 33.0, RDW 13.7, Plt Count 550 H, MPV 8.2, Neut % (Auto) 83.3 H, Lymph % ( Auto) 9.3 L, [place] % (Auto) 5.7, Eos % (Auto) 1.3, Baso % (Auto) 0.5, Neut # (Auto) 17.9 H, Lymph # (Auto) 2.0, [place] # (Auto) 1.2 H, Eos # (Auto) 0.3, Baso # (Auto) 0.1 07/29/22 05:37: Sodium 136, Potassium 3.8, Chloride 102, Carbon Dioxide 26, Anion Gap 11.8, BUN 21 H, Creatinine 1.00, Estimated Creat Clear 127, Estimated GFR 76, Est GFR ( Amer) 92, Glucose 117 H, Calcium 8.7 I & O for Last 24 hours: Intake & Output 07/26/22 07/27/22 07/28/22 07/29/22 11:59 11:59 11:59 11:59 Intake Total 1086 / 1086 2340 / 2340 1329 / 1329 Output Total 0 / 0 0 / 0 1350 / 1350 0 / 0 Balance 0 / 0 1086 / 1086 990 / 990 1329 / 1329 Weight 249 lb 2 oz 251 lb 253 lb 8.505 oz 254 lb 5 oz *Routine Abdominal Exam Abdominal: Present distended; Absent tenderness Progress Note: A&P Assessment and plan (1) Cholecystitis: Status: Acute Assessment and plan: Patient still does have elevated white blood cell count. However, clinically doing much better. May be reasonable to discharge home. However, given his leukocytosis, particularly with history of splenectomy, likely will need to continue antibiotics. (2) Pulmonary hypertension: Status: Acute (3) BPH (benign prostatic hyperplasia): Status: Acute (4) Recurrent acute deep vein thrombosis (DVT) of both lower extremities: Status: Acute (5) Status post cholecystectomy: Status: Acute
[2022-07-29 07:52] LABS: Lymphocytes % 7 % (10-50); Monocytes % 9 % (2-9); Neutrophils % 84 % (42-76); Platelet Estimate Slight Increase; RBC Morphology Normal; Total Cells Counted 100
[2022-07-29 08:00] VITALS: BP 156/89; PULSE 95; RESP 18; TEMP 36.8; O2SAT 93
--- NOTE | 2022-07-29 08:20 | P.PN_ITS ---
Subjective *Date: 07/29/22 *Time: 08:20 Medical Exam Vital signs and Labs for Last 24 Hours: Vital Signs Temp Pulse Resp BP Pulse Ox 07/29/22 08:00 98.3 F 95 H 18 156/89 H 93 L 07/29/22 04:00 97.9 F 83 18 136/77 97 07/29/22 00:00 97.8 F 100 H 18 152/78 H 98 07/28/22 21:03 92 L 07/28/22 20:00 98.4 F 78 20 154/84 H 89 L 07/28/22 19:41 91 L 07/28/22 15:08 99.0 F 75 18 112/65 90 L 07/28/22 11:31 98.5 F 67 18 129/67 90 L Intake and Output 07/28/22 07/29/22 07/29/22 23:59 07:59 15:59 Intake Total 749 / 1909 100 / 220 120 / 220 Output Total 0 / 0 0 / 0 Balance 749 / 1909 100 / 220 120 / 220 Intake: Intake, Oral Amount 480 / 1440 120 / 120 Intake, Total IV Amount 269 / 469 100 / 100 Levofloxacin/D5w 500 mg In 100 95 / 95 ml @ 100 mls/hr IV 1100 [facility] Rx# :[id number] Metronidaz/Sod Chl 500 mg In 174 / 374 100 / 100 100 ml @ 100 mls/hr IV Q8H [facility] Rx#:[id number] Output: Output, Urine Amount 0 / 0 0 / 0 Other: Number of Voids 1 1 Number of Unmeasured Voids 1 0 Number of Bowel Movements 1 1 Weight 115.354 kg Patient Weight 07/29/22 23:59 Weight 115.354 kg Laboratory Results - last 24 hr 07/28/22 06:30: Total Counted 100, Neutrophils % (Manual) 81 H, Lymphocytes % (Manual) 11, Monocytes % (Manual) 7, Eosinophils % (Manual) 1, Platelet Estimate Slight increase, RBC Morphology Normal 07/29/22 05:37: WBC 21.5 H*, RBC 4.64, Hgb 14.4, Hct 43.5, MCV 93.7, MCH 30.9, MCHC 33.0, RDW 13.7, Plt Count 550 H, MPV 8.2, Neut % (Auto) 83.3 H, Lymph % ( Auto) 9.3 L, [place] % (Auto) 5.7, Eos % (Auto) 1.3, Baso % (Auto) 0.5, Neut # (Auto) 17.9 H, Lymph # (Auto) 2.0, [place] # (Auto) 1.2 H, Eos # (Auto) 0.3, Baso # (Auto) 0.1, Total Counted 100, Neutrophils % (Manual) 84 H, Lymphocytes % (Manual) 7 L, Monocytes % (Manual) 9, Platelet Estimate Slight increase, RBC Morphology Normal 07/29/22 05:37: Sodium 136, Potassium 3.8, Chloride 102, Carbon Dioxide 26, Anion Gap 11.8, BUN 21 H, Creatinine 1.00, Estimated Creat Clear 127, Estimated GFR 76, Est GFR ( Amer) 92, Glucose 117 H, Calcium 8.7 I & O for Labs for Last 24 Hours: Intake & Output 07/26/22 07/27/22 07/28/22 07/29/22 23:59 23:59 23:59 23:59 Intake Total 360 / 360 2486 / 2486 1809 / 1909 220 / 220 Output Total 0 / 0 1350 / 1350 0 / 0 0 / 0 Balance 360 / 360 1136 / 1136 1809 / 1909 220 / 220 Weight 113.001 kg 113.852 kg 115 kg 115.354 kg The patient's infection will respond to the chosen ABx?: Yes (EMPIRIC THERAPY) Is the patient receiving the right drug, dose, and route?: Yes Could a more targeted ABx be ordered?: No (NO CULTURES)
--- NOTE | 2022-07-29 08:26 | EXP.ACUTE.PN ---
Subjective *Date: 07/29/22 *Time: 08:38 Interval history: Patient is feeling much better today. Requiring less pain medication. Has eaten a few bites. Wants to go home. Medical Exam Vital signs and Labs for Last 24 Hours: Vital Signs Temp Pulse Resp BP Pulse Ox 07/29/22 08:00 98.3 F 95 H 18 156/89 H 93 L 07/29/22 04:00 97.9 F 83 18 136/77 97 07/29/22 00:00 97.8 F 100 H 18 152/78 H 98 07/28/22 21:03 92 L 07/28/22 20:00 98.4 F 78 20 154/84 H 89 L 07/28/22 19:41 91 L 07/28/22 15:08 99.0 F 75 18 112/65 90 L 07/28/22 11:31 98.5 F 67 18 129/67 90 L Intake and Output 07/28/22 07/29/22 07/29/22 19:59 03:59 11:59 Intake Total 1229 / 1449 100 / 1449 120 / 1449 Output Total 0 / 0 0 / 0 0 / 0 Balance 1229 / 1449 100 / 1449 120 / 1449 Intake: Intake, Oral Amount 960 / 1080 120 / 1080 Intake, Total IV Amount 269 / 369 100 / 369 Levofloxacin/D5w 500 mg In 100 95 / 95 ml @ 100 mls/hr IV 1100 [facility] Rx# :[id number] Metronidaz/Sod Chl 500 mg In 174 / 274 100 / 274 100 ml @ 100 mls/hr IV Q8H [facility] Rx#:[id number] Output: Output, Urine Amount 0 / 0 0 / 0 0 / 0 Other: Number of Voids 1 Number of Unmeasured Voids 2 1 0 Number of Bowel Movements 1 1 Weight 254 lb 5 oz Patient Weight 07/29/22 11:59 Weight 254 lb 5 oz Laboratory Results - last 24 hr 07/28/22 06:30: Total Counted 100, Neutrophils % (Manual) 81 H, Lymphocytes % (Manual) 11, Monocytes % (Manual) 7, Eosinophils % (Manual) 1, Platelet Estimate Slight increase, RBC Morphology Normal 07/29/22 05:37: WBC 21.5 H*, RBC 4.64, Hgb 14.4, Hct 43.5, MCV 93.7, MCH 30.9, MCHC 33.0, RDW 13.7, Plt Count 550 H, MPV 8.2, Neut % (Auto) 83.3 H, Lymph % (Auto) 9.3 L, [place] % (Auto) 5.7, Eos % (Auto) 1.3, Baso % (Auto) 0.5, Neut # (Auto) 17.9 H, Lymph # (Auto) 2.0, [place] # (Auto) 1.2 H, Eos # (Auto) 0.3, Baso # (Auto) 0.1, Total Counted 100, Neutrophils % (Manual) 84 H, Lymphocytes % (Manual) 7 L, Monocytes % (Manual) 9, Platelet Estimate Slight increase, RBC Morphology Normal 07/29/22 05:37: Sodium 136, Potassium 3.8, Chloride 102, Carbon Dioxide 26, Anion Gap 11.8, BUN 21 H, Creatinine 1.00, Estimated Creat Clear 127, Estimated GFR 76, Est GFR ( Amer) 92, Glucose 117 H, Calcium 8.7 I & O for Labs for Last 24 Hours: Intake & Output 07/26/22 07/27/22 07/28/22 07/29/22 11:59 11:59 11:59 11:59 Intake Total 1086 / 1086 2340 / 2340 1449 / 1449 Output Total 0 / 0 0 / 0 1350 / 1350 0 / 0 Balance 0 / 0 1086 / 1086 990 / 990 1449 / 1449 Weight 249 lb 2 oz 251 lb 253 lb 8.505 oz 254 lb 5 oz Constitutional: Present no acute distress Respiratory: Present normal respiratory effort Cardiac: Present Reg Rate and Rhythm GI: Present tenderness (around incision sites) and normal bowel sounds; Absent guarding or rebound Extremities: Present normal inspection and full ROM Skin: Present intact; Absent erythema Neuro: Present Grossly Intact and moves all extremities Assessment and Plan *Assessment and plan (1) Cholecystitis: Status: Acute Category: Medical Code(s): K81.9 - Cholecystitis, unspecified (2) Pulmonary hypertension: Status: Acute Category: Medical Code(s): I27.20 - Pulmonary hypertension, unspecified (3) BPH (benign prostatic hyperplasia): Status: Acute Category: Medical Code(s): N40.0 - Benign prostatic hyperplasia without lower urinary tract symptoms (4) Recurrent acute deep vein thrombosis (DVT) of both lower extremities: Status: Acute Category: Medical Code(s): I82.403 - Acute embolism and thrombosis of unspecified deep veins of lower extremity, bilateral (5) Status post cholecystectomy: Status: Acute Category: Surgical Code(s): Z90.49 - Acquired absence of other specified parts of digestive tract Plan WBC has improved slightly. Patient can likely discharge on oral abx and an
--- NOTE | 2022-07-29 09:44 | HMH.PHAINT1 ---
Pharmacy Intervention Comments: DISCHARGE MEDICATION COUNSELING PROVIDED. DISCUSSED STOPPING THE WARFARIN AND HYOSCYAMINE AND STARTING XARELTO 20 MG DAILY. COUNSELED TO TAKE WITH DINNER IN THE EVENING, BLEED/BRUISE RISK, GO TO THE ER IF BLEEDING OR BUMP HEAD. PATIENT VERBALIZED NO QUESTIONS AT THIS TIME.
--- NOTE | 2022-08-01 13:57 | CARE MANAGER ---
Attempted post-discharge phone interview, no answer and mailbox is full.
--- NOTE | 2022-08-01 23:14 | EXP.DC.SUM ---
General Admission date:: 07/26/22 Discharge date: 07/29/22 HPI HPI HPI: Mr. 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 He described the pain as starting in his back about 6 days prior to the office visit and then moved into his abdominal area the following day. Pain is mostly in the epigastrium and right upper quadrant. He was managed as an outpatient when he was seen in the office in [facility] several days ago and started on oral antibiotics. He was scheduled for right upper quadrant ultrasound which he had done today which revealed findings of distended gallbladder with gallstones with mild gallbladder wall thickening and pericholecystic fluid. Cholecystitis not excluded. Fatty infiltration of the liver. He was admitted for inpatient management and surgical consultation this afternoon. Hospital Course Hospital Course Hospital Course: The patient was admitted and surgery was consulted due to acute cholecystitis. He was seen in consultation by Dr. Fernando who went ahead and started him on IV antibiotics and tentatively planned for laparoscopic cholecystectomy the next day, as his INR was still somewhat elevated. On 07/27/2022, he was able to have a laparoscopic cholecystectomy with fresh frozen plasma given during the procedure due to elevated INR. It was felt he would need Lovenox once hemostasis was obtained after the procedure. The patient did have acute calculus cholecystitis. There was a significantly distended gallbladder with profound thickening and significant severe acute on chronic inflammation with pericholecystic fluid. He did have an 8 cm stone impacted in the neck of the gallbladder and a large amount of inflammation around the marcos hepatis. The patient continued with some significant right upper quadrant soreness after his surgery. He was able to ambulate. He was eating very minimal. He was started on Lovenox 1 mg/kg with plans to transition to Xarelto for long-term anticoagulation as opposed to warfarin. His white blood cell count was elevated at 23,000, therefore he was continued on IV antibiotics and kept another night in the hospital. He was also given Toradol for pain, which did help. By 07/29/2022, his white blood cell count had improved. Dr. Fernando felt he could discharge home, but would need to be continued on oral antibiotics. He was stable to be discharged and will follow up with Dr. Fernando. Exam Data for Last 24 hours Vital signs and Labs for Last 24 Hours: Temp Pulse Resp BP Pulse Ox 98.3 F 95 H 18 156/89 H 93 L 07/29/22 08:00 07/29/22 08:00 07/29/22 08:00 07/29/22 08:00 07/29/22 08:00 Narrative: Constitutional Constitutional: no acute distress Comments: Appears comfortable lying in bed *Routine HEENT Exam Head: Present normocephalic and atraumatic Eye: Present PERRL; Absent conjunctival icterus, scleral injection or conjunctivae pink ENT: Present mucous membranes moist and oropharynx clear *Routine Neck Exam Neck: Present supple; Absent carotid bruit, lymphadenopathy or thyromegaly *Routine Respiratory Exam Respiratory: Present CTA bilaterally (Anteriorly and posteriorly) *Routine Cardiovascular Exam Cardiovascular: Present RRR *Routine Abdominal Exam Abdominal: Present soft, normoactive bowel sounds, tenderness (Right upper quadrant) and distended Comments: Mildly distended *Routine Rectal Exam Rectal:: deferred *Routine Genitalia Exam Genitalia:: deferred *Routine Extremities Exam Extremities: Present edema (Trace to 1+ bilateral lower leg edema); Absent tenderness *Routine Neurological Exam Neurological: Present alert and oriented X3 DS: Diagnosis
== END 2022-07-29 10:17 | disposition home or self-care (01) | DRG 419 ==
PROVIDERS: Nurse Practitioner Family; Surgery; Admitting Provider Family Medicine; PCP Family Medicine; Visit Provider Family Medicine
PROC: 0FT44ZZ Resection of Gallbladder, Percutaneous Endoscopic Approach (ICD-10-PCS; CPT 47562; principal; 2022-07-27 08:45)
DX: K81.9 Cholecystitis, unspecified (principal); Z86.711 Personal history of pulmonary embolism; G47.30 Sleep apnea, unspecified; I27.20 Pulmonary hypertension, unspecified; Z86.718 Personal history of other venous thrombosis and embolism; N40.0 Benign prostatic hyperplasia without lower urinary tract symptoms
CPT/HCPCS: 47562; G0379; 36415; 80048; 80053; 85007; 85014; 85018; 85025; 85048; 85049; 85610; 86900; 86901; 93005; C9803; J1956; J2405; P9017; U0003; U0005

== ENCOUNTER → 2023-02-14 07:12 | Outpatient (CLI) | payer BC, SELFPAY ==
[2023-02-14 08:08] LABS: Alanine Aminotransferase 31 U/L (12-78); Albumin Level 4.5 g/dl (3.5-5.0); Albumin/Globulin Ratio 1.2 (1.1-1.8); Alkaline Phosphatase 94 U/L (38-126); Anion Gap 12.1 mEq/L (5-15); Aspartate Amino Transferase 31 U/L (17-59); Bilirubin,Total 1.9 mg/dl (0.2-1.3); Blood Urea Nitrogen 16 mg/dl (9-20); Calcium 9.9 mg/dl (8.4-10.2); Carbon Dioxide 29 mmol/L (22.0-30.0); Chloride 102 mmol/L (98-107); Chol/HDL Ratio 3.9 (1-3.5); Cholesterol 153 mg/dl (140-200); Estimated Glomerular Filt Rate 76 ml/min (>60); GFR (African American) 92 ML/MIN (>60); Globulin 3.9 g/dL (1.3-3.2); Glucose 120 mg/dl (74-100); HDL Cholesterol 39 mg/dl (40-60); Potassium 4.1 mmoL/L (3.5-5.1); Sodium 139 mmol/L (136-145); Total Protein,Serum 8.4 g/dl (6.3-8.2); Triglycerides 138 mg/dl (30-150); VLDL Cholesterol 28 mg/dL (0-40)
[2023-02-14 08:19] LABS: Direct LDL Cholesterol 77.67 mg/dL (100-129)
[2023-02-14 08:39] LABS: Prostate Specific Ag Screen 8.3 ng/ml (0.0-4.0)
== END ==
PROVIDERS: PCP Family Medicine; Visit Provider Family Medicine
DX: I10 Essential (primary) hypertension (principal); E78.1 Pure hyperglyceridemia; Z12.5 Encounter for screening for malignant neoplasm of prostate
CPT/HCPCS: 36415; 80053; 80061; G0103